=== PATIENT | female | born 1960 | race Caucasian/White ===

== ENCOUNTER 2018-09-09 08:37 | Emergency (ER) | payer OTHER ==
[~2018-09-09] VITALS: Ht 165.1 cm; Wt 61.2 kg
[2018-09-09 08:43] VITALS: Ht 165.1 cm; Wt 61.2 kg
[2018-09-09 09:27] LABS: microscopic required? NO
[2018-09-09 09:32] LABS: CALCIUM 8.9 mg/dL (8.5-10.1); CHLORIDE SERUM 104 mmol/L (98-107); CREATININE SERUM 0.7 mg/dL (0.6-1.0); GFR1 > 60 mL/min; GLUCOSE SERUM 98 mg/dL (74-106); POTASSIUM SERUM 3.8 mmol/L (3.5-5.1); SODIUM SERUM 141 mmol/L (136-145)
[2018-09-09 09:40] LABS: BASOPHIL % 0.9 % (0-2); RED CELL DISTRIBUTION WIDTH 13.1 % (11.5-14.5)
[2018-09-09 09:41] LABS: PLATELET COUNT 403 x10^3mcL (130-400)
[2018-09-09 09:43] LABS: ALBUMIN 4.1 g/dL (3.4-5.0); ALKALINE PHOSPHATASE 73 U/L (46-116); ALT/SGPT 18 U/L (14-59); AMYLASE 85 U/L (25-115); AST/SGOT 11 U/L (15-37); BILIRUBIN TOTAL 0.8 mg/dL (0.20-1.00); HDL CHOLESTEROL 57 mg/dL (40-60); LIPASE 371 IU/L (73-393); T4(THYROXINE) 9.3 ug/dL (4.7-13.3); TOTAL PROTEIN, SERUM 7.9 g/dL (6.4-8.2)
[2018-09-09 09:44] LABS: CHOLESTEROL 247 mg/dL (<200)
[2018-09-09 10:10] LABS: AMPHETAMINE QUAL UR NONE DETECTED (See below)
[2018-09-09 10:59] LABS: urine erythrocyte NEGATIVE (NEGATIVE)
[2018-09-09 12:09] VITALS: BP 142/71
== END 2018-09-09 12:09 | disposition home or self-care (01) ==
LOC: ED 08:37
PROVIDERS: Emergency Medicine
DX: R53.1 Weakness (principal); I10 Essential (primary) hypertension; E78.00 Pure hypercholesterolemia, unspecified; G89.4 Chronic pain syndrome; M19.90 Unspecified osteoarthritis, unspecified site; G43.909 Migraine, unspecified, not intractable, without status migrainosus; Z90.49 Acquired absence of other specified parts of digestive tract; Z90.710 Acquired absence of both cervix and uterus; Z88.2 Allergy status to sulfonamides
CPT/HCPCS: 36415; 82962; G0480; J3030; J7030; Q0092

== ENCOUNTER 2019-06-25 11:33 | Emergency (ER) | payer OTHER ==
[~2019-06-25] VITALS: Ht 167.6 cm; Wt 63.0 kg
[2019-06-25 11:47] VITALS: Ht 167.6 cm; Wt 63.0 kg
[2019-06-25 13:35] VITALS: BP 120/74
== END 2019-06-25 13:35 | disposition left against medical advice (07) ==
LOC: ED 11:33
DX: Z53.21 Procedure and treatment not carried out due to patient leaving prior to being seen by health care provider (principal)

== ENCOUNTER 2019-06-26 08:13 | Emergency (ER) | payer OTHER ==
[~2019-06-26] VITALS: Ht 160 cm; Wt 64.4 kg
[2019-06-26 08:18] VITALS: Ht 160 cm; Wt 64.4 kg
[2019-06-26 08:54] LABS: CALCIUM 8.8 mg/dL (8.5-10.1); CARBON DIOXIDE 28.6 mmol/L (21-32); CHLORIDE SERUM 105 mmol/L (98-107); CREATININE SERUM 0.7 mg/dL (0.6-1.0); GFR1 > 60 mL/min; GLUCOSE SERUM 97 mg/dL (74-106); POTASSIUM SERUM 4.2 mmol/L (3.5-5.1); SODIUM SERUM 143 mmol/L (136-145)
[2019-06-26 08:58] LABS: ALBUMIN 3.9 g/dL (3.4-5.0); ALKALINE PHOSPHATASE 78 U/L (46-116); ALT/SGPT 20 U/L (14-59); AST/SGOT 9 U/L (15-37); BILIRUBIN TOTAL 0.8 mg/dL (0.20-1.00); HDL CHOLESTEROL 46 mg/dL (40-60); TOTAL PROTEIN, SERUM 7.7 g/dL (6.4-8.2); TRIGLYCERIDES 141 mg/dL (<150)
[2019-06-26 09:08] LABS: BASOPHIL % 1.1 % (0-2); CHOLESTEROL 231 mg/dL (<200); RED CELL DISTRIBUTION WIDTH 12.4 % (11.5-14.5)
[2019-06-26 09:15] LABS: PLATELET COUNT 411 x10^3mcL (130-400)
[2019-06-26 09:36] VITALS: BP 134/63
== END 2019-06-26 11:05 | disposition left against medical advice (07) ==
LOC: ED 08:13
PROVIDERS: Emergency Medicine
DX: I63.9 Cerebral infarction, unspecified (principal); I10 Essential (primary) hypertension; M19.90 Unspecified osteoarthritis, unspecified site; F17.200 Nicotine dependence, unspecified, uncomplicated; G43.909 Migraine, unspecified, not intractable, without status migrainosus; Z90.49 Acquired absence of other specified parts of digestive tract; Z90.710 Acquired absence of both cervix and uterus; Z86.73 Personal history of transient ischemic attack (TIA), and cerebral infarction without residual deficits; Z88.2 Allergy status to sulfonamides
CPT/HCPCS: 36415; 99406; Q0092